=== PATIENT | female | born 1955 | race Caucasian/White ===

== ENCOUNTER 2019-09-16 04:37 | Emergency (ER) | payer MEDICARE, SELFPAY ==
[2019-09-16 04:45] VITALS: BP 167/103; PULSE 113; RESP 18; TEMP 36.6; O2SAT 95; BMI 27.3
--- NOTE | 2019-09-16 04:59 | ED_ITS ---
Documented by User: Von Briseno DO 09/16/19 05:57 HPI - Allergic Reaction General: Chief complaint: Allergic Reaction Stated complaint: lower lip swelling Time Seen by Provider: 09/16/19 04:53 History of Present Illness: HPI narrative: 63-year-old female states that she had a zit on her lower lip a few days ago, pinched it and got some fluid out. She notes after this, her lip began to swell over the last couple of days. She is taken Benadryl and Tylenol with no effect. She complains of tenderness. She says it does not really itch. There is no other rash on her body. She denies any fever or chills. MD complaint: facial swelling Onset (ago): day(s) Exposure: unknown Associated symptoms: Deny abdominal pain, difficulty breathing, dizziness, nausea or vomiting Severity: moderate Treatment prior to arrival: benadryl Previous Allergic Reaction History: none Review of Systems Const: Denies: fever or chills Eyes: Denies: change in vision or blurry vision ENMT: Reports: swelling of lips/tongue; Denies: painful swallowing, bleeding gums, dental pain, Change in hearing, nose bleeds, post nasal drip or facial/sinus pain Card: Denies: chest pain, palpitations, irregular heart rhythm, edema, swelling of feet/ankles, shortness of breath on exertion or shortness of breath when lying down Resp: Denies: shortness of breath, productive cough, non-productive cough or wheezing GI: Denies: abdominal pain, nausea or vomiting : Denies: painful urination or blood in urine Musc: Denies: neck pain, back pain, redness or joint warmth Skin/Breast: Denies: itching or redness Neuro: Denies: headache, dizziness or vertigo Psych: Denies: anxiety PFSH ED PFSH: Social History Smoking and tobacco status: never smoked Physical Exam Const: GENERAL APPEARANCE: well developed ORIENTATION/CONSCIOUSNESS: Yes oriented to person, Yes oriented to place and Yes oriented to time HENMT: COMMON NORMALS: external ears normal and external nose normal FACE & SINUS: facial edema (Lower lip edema with tenderness to palpation.) NOSE: external nose normal and no nasal discharge EXTERNAL EAR: Yes external ears normal MOUTH: tongue normal TEETH & GINGIVA: no abnormal tooth and associated gingiva THROAT: posterior oropharynx normal; no peritonsillar mass Eye: COMMON NORMALS: PERRL, EOMs intact bilaterally and conjunctivae normal EYELID: eyelids normal CONJUNCTIVA: Yes conjunctivae normal PUPIL: Yes PERRL Neck/C-Spine: COMMON NORMALS: full ROM GENERAL: No tracheal deviation Chest: COMMONS NORMALS: inspection of chest normal CHEST: No tenderness Resp: COMMON NORMALS: clear to auscultation bilaterally EFFORT & INSPECTION: No tachypneic, No respiratory distress, No retractions, No uses accessory muscles and No tracheal deviation AUSCULTATION: clear to auscultation bilaterally, no rhonchi, no wheezes and lung sounds not diminished Cardio: COMMON NORMALS: regular rate and regular rhythm RATE: regular rate RHYTHM: regular rhythm HEART SOUNDS: no murmurs PERIPHERAL PULSES: radial pulses present GI: INSPECTION: No abdominal distension AUSCULTATION: No hyperactive bowel sounds and No hypoactive bowel sounds PALPATION: No guarding and No rigid PERCUSSION: no dullness to percussion and no tympanic to percussion Neuro: SENSORIUM/ORIENTATION: Yes oriented to person, Yes oriented to place and Yes oriented to time Psych: COMMON NORMALS: mental status grossly normal Skin: COMMON NORMALS: no rashes or lesions noted GENERAL SKIN EXAM: no rashes or lesions noted Course Vital Signs: Vital signs: Vital Signs Temperature 97.8 F 09/16/19 04:45 Pulse Rate 79 09/16/19 07:33 Respiratory Rate 15 09/16/19 07:33 Blood Pressure 133/103 09/16/19 07:33 Pulse Oximetry 97 09/16/19 07:33 MDM - Allergic Reaction MDM Narrative: Medical decision making narrative: 63-year-old female presents with lower lip swelling. This is after she applied pressure to a comedone. I expect this is infectious swelling, but the possibility remains of allergy. Labs are drawn to clarify. I did a bedside ultrasound, and it does not appear that there is a drainable abscess in the lip itself. She has been given Solu- Medrol and clindamycin. Labs are pending. She will be checked out to Dr. Clay at shift change. Lab Data: Labs: Lab Results 09/16/19 09/16/19 Range/Units 05:51 05:51 WBC 7.7 (4.0-10.0) 10^3/ uL RBC 4.75 (4.1-5.3) 10^6/u L Hgb 13.0 (11.5-15.3) g/dL Hct 38.4 (37.0-47.0) % MCV 80.8 L (81-99) fL MCH 27.4 L (28.0-34.0) pg MCHC 33.9 (30.0-36.0) g/dL RDW 13.7 (12.1-15.1) % Plt Count 273 (130-400) 10^3/c mm MPV 9.2 (7.4-10.4) fL Total Counted 100 (0-100) Segmented Neutroph ils 61 % Band Neutrophils 6.0 % Lymphocytes (Manua l) 15 % Monocytes (Manual) 11.0 % Absolute Monocytes 0.8 H (0.1-0.6) 10^3/c mm Eosinophils (Manua l) 7 % Absolute Eosinophi ls 0.5 (0.0-0.7) 10^3/c mm Platelet Estimate Normal (Normal) Sodium 138 (136-145) mmol/L Potassium 3.9 (3.5-5.1) mmol/L Chloride 101 (98-107) mmol/L Carbon Dioxide 25 (22-29) mmol/L Anion Gap 15.9 (5-19) BUN 13 (8-23) mg/dL Creatinine 0.8 (0.5-0.9) mg/dL GFR Calculation 72.0 L (90-130) mL/min Glucose 117 H (65-115) mg/dL Calculated Osmolal ity 283 L (285-295) mOsm/k g Calcium 10.1 (8.5-10.5) mg/dL Total Bilirubin 0.3 (0.15-1.2) mg/dL AST 18 (0-32) U/L ALT 16 (0-33) U/L Alkaline Phosphata se 71 (35-105) IU/L C-Reactive Protein 7.9 H (0.0-4.9) mg/L Total Protein 7.8 (6.6-8.7) g/dL Albumin 3.9 (3.5-5.2) g/dL Globulin 3.9 (1.3-4.6) g/dL Discharge Plan Discharge Patient Disposition: Home, Self-Care Clinical Impression: Cellulitis of lip Condition: Stable Prescriptions: New clindamycin HCl 300 mg capsule 300 mg PO QID 7 Days Qty: 28 RF: 0 No Action losartan 50 mg Tablet 50 mg PO DAILY RF: 0 levothyroxine 75 mcg Tablet 75 mcg PO DAILY RF: 0 trazodone 150 mg Tablet 150 mg PO DAILY RF: 0 oxybutynin chloride 5 mg Tablet Extended Release 24hr 5 mg PO DAILY RF: 0 Discharge Orders: Discharge Order (Routine); Ordered 09/16/19 Ordered By: Perfecto Clay Referrals: Veronica Bustamante APN [Primary Care Provider] - Discharge Diet: Usual diet Discharge Activity: Resume usual activity Activity Restrictions/Additional Instructions: Follow-up with your doctor in 4 to 5 days if not improving. If seems to be worsening return to the emergency room Discharge Date/Time: 09/16/19 07:33 Sign Out Sign Out Data: Patient Sign Out occurred on 09/16/19 at 07:11. Patient's care was discussed, and care was transferred from to Perfecto Clay DO. Coding Level of Care Code ED Hatchery Helper for Chg Fwd Exam Comprehensive Documented by User: Perfecto Clay DO 09/16/19 08:35 HPI - Allergic Reaction General: Chief complaint: Allergic Reaction Stated complaint: lower lip swelling Time Seen by Provider: 09/16/19 04:53 [facility] ED PFSH: Social History Smoking and tobacco status: never smoked Course Vital Signs: Vital signs: Vital Signs Temperature 97.8 F 09/16/19 04:45 Pulse Rate 79 09/16/19 07:33 Respiratory Rate 15 09/16/19 07:33 Blood Pressure 133/103 09/16/19 07:33 Pulse Oximetry 97 09/16/19 07:33 MDM - Allergic Reaction MDM Narrative: Medical decision making narrative: Labs reviewed. Care assumed from Dr. Briseno. Examination of the lip there is an area that appears to be coming to a point there is localized swelling and erythema consistent with a cellulitis is not really fluctuant I do not believe it can be drained at this time. Dr. Briseno had ultrasounded and there is no drainable mass. She is received a dose of IV antibiotics will discharge home on clindamycin if not improving the next few days with recheck with her primary care doctor if worsens return to the emergency room Lab Data: Labs: Lab Results 09/16/19 09/16/19 Range/Units 05:51 05:51 WBC 7.7 (4.0-10.0) 10^3/ uL RBC 4.75 (4.1-5.3) 10^6/u L Hgb 13.0 (11.5-15.3) g/dL Hct 38.4 (37.0-47.0) % MCV 80.8 L (81-99) fL MCH 27.4 L (28.0-34.0) pg MCHC 33.9 (30.0-36.0) g/dL RDW 13.7 (12.1-15.1) % Plt Count 273 (130-400) 10^3/c mm MPV 9.2 (7.4-10.4) fL Total Counted 100 (0-100) Segmented Neutroph ils 61 % Band Neutrophils 6.0 % Lymphocytes (Manua l) 15 % Monocytes (Manual) 11.0 % Absolute Monocytes 0.8 H (0.1-0.6) 10^3/c mm Eosinophils (Manua l) 7 % Absolute Eosinophi ls 0.5 (0.0-0.7) 10^3/c mm Platelet Estimate Normal (Normal) Sodium 138 (136-145) mmol/L Potassium 3.9 (3.5-5.1) mmol/L Chloride 101 (98-107) mmol/L Carbon Dioxide 25 (22-29) mmol/L Anion Gap 15.9 (5-19) BUN 13 (8-23) mg/dL Creatinine 0.8 (0.5-0.9) mg/dL GFR Calculation 72.0 L (90-130) mL/min Glucose 117 H (65-115) mg/dL Calculated Osmolal ity 283 L (285-295) mOsm/k g Calcium 10.1 (8.5-10.5) mg/dL Total Bilirubin 0.3 (0.15-1.2) mg/dL AST 18 (0-32) U/L ALT 16 (0-33) U/L Alkaline Phosphata se 71 (35-105) IU/L C-Reactive Protein 7.9 H (0.0-4.9) mg/L Total Protein 7.8 (6.6-8.7) g/dL Albumin 3.9 (3.5-5.2) g/dL Globulin 3.9 (1.3-4.6) g/dL Discharge Plan Discharge Patient Disposition: Home, Self-Care Clinical Impression: Cellulitis of lip Condition: Stable Prescriptions: New clindamycin HCl 300 mg capsule 300 mg PO QID 7 Days Qty: 28 RF: 0 No Action losartan 50 mg Tablet 50 mg PO DAILY RF: 0 levothyroxine 75 mcg Tablet 75 mcg PO DAILY RF: 0 trazodone 150 mg Tablet 150 mg PO DAILY RF: 0 oxybutynin chloride 5 mg Tablet Extended Release 24hr 5 mg PO DAILY RF: 0 Discharge Orders: Discharge Order (Routine); Ordered 09/16/19 Ordered By: Perfecto Clay Referrals: Veronica Bustamante APN [Primary Care Provider] - Discharge Diet: Usual diet Discharge Activity: Resume usual activity Activity Restrictions/Additional Instructions: Follow-up with your doctor in 4 to 5 days if not improving. If seems to be worsening return to the emergency room Discharge Date/Time: 09/16/19 07:33 Sign Out Sign Out Data: Patient Sign Out occurred on 09/16/19 at 07:11. Patient's care was discussed, and care was transferred from to Perfecto Clay DO. Coding Level of Care Code ED Hatchery Helper for Divya Fwd Exam Comprehensive
[2019-09-16 06:00] LABS: Hematocrit 38.4 % (37.0-47.0); Mean Corpuscular HGB Conc 33.9 g/dL (30.0-36.0); Mean Corpuscular Hemoglobin 27.4 pg (28.0-34.0); Mean Corpuscular Volume 80.8 fL (81-99); Mean Platelet Volume 9.2 fL (7.4-10.4); Platelet Count 273 10^3/cmm (130-400); Red Blood Count 4.75 10^6/uL (4.1-5.3); Red Cell Distribution Width 13.7 % (12.1-15.1); White Blood Count 7.7 10^3/uL (4.0-10.0)
[2019-09-16] MEDS: famotidine 20 mg/2 mL INJ IVP (06:09)
[2019-09-16] MEDS: diphenhydrAMINE 50 mg/mL SDV 1mL IVP (06:14)
[2019-09-16 06:15] LABS: Absolute Eosinophils 0.5 10^3/cmm (0.0-0.7); Absolute Segmented Neutrophil 4.6 10/cmm (1.6-7.1); Band Neutrophils Absolute 0.5 10^3/cmm (0.0-1.2); Eosinophils 7 %; Lymphocytes 15 %; Monocytes Absolute 0.8 10^3/cmm (0.1-0.6); Segmented Neutrophils 61 %; Total Cells Counted 100 (0-100)
[2019-09-16 06:16] LABS: Alanine Aminotransferase 16 U/L (0-33); Albumin Level 3.9 g/dL (3.5-5.2); Alkaline Phosphatase 71 IU/L (35-105); Anion Gap 15.9 (5-19); Aspartate Amino Transferase 18 U/L (0-32); Blood Urea Nitrogen 13 mg/dL (8-23); C Reactive Protein 7.9 mg/L (0.0-4.9); Calcium 10.1 mg/dL (8.5-10.5); Carbon Dioxide 25 mmol/L (22-29); Chloride 101 mmol/L (98-107); Globulin 3.9 g/dL (1.3-4.6); Glucose 117 mg/dL (65-115); Osmolality Calculated 283 mOsm/kg (285-295); Platelet Estimate Normal (Normal); Potassium 3.9 mmol/L (3.5-5.1); Sodium 138 mmol/L (136-145); Total Bilirubin 0.3 mg/dL (0.15-1.2); Total Protein 7.8 g/dL (6.6-8.7)
[2019-09-16] MEDS: clindamycin 900 MG/50 ML PREMIX 100 MG IV (06:17)
[2019-09-16 06:32] VITALS: BP 170/112; PULSE 102; RESP 16; O2SAT 100
--- NOTE | 2019-09-16 06:58 | PC.NURSE ---
Antibiotics complete. Pt. without complaint. Without distress.
[2019-09-16 07:33] VITALS: BP 133/103; PULSE 79; RESP 15; O2SAT 97
== END 2019-09-16 07:33 | disposition home or self-care (01) ==
PROVIDERS: Emergency Medicine; Emergency Provider Family Medicine; PCP Nurse Practitioner
DX: K13.0 Diseases of lips (principal)
CPT/HCPCS: 12345; 80053; 85007; 85027; 86140; 96365; 96375; 99282; J1200; J2930; J3490

== ENCOUNTER 2019-11-22 14:13 | Outpatient (CLI) | payer MEDICARE, SELFPAY ==
--- NOTE | 2019-11-22 14:21 | XR_ITS ---
WS: [id number] Bone mineral density performed on a [employer], 11/22/2019 Clinical data: POST MENOPAUSE Findings: The first 4 lumbar vertebral bodies demonstrated the bone mineral density of 1.233 g/cm2 for a young adult T score of 0.4. Measurement of the left hip reveals a bone mineral density of 1.067 g/cm2 with a young adult T score of 0.5. Measurement of the right hip reveals the bone mineral density of 1.068 g/cm2 for young adult T score of 0.5. XR/XR DEXA axial skeleton* [id number] Impression: Normal bone mineral density of the lumbar spine and both hips.
== END 2019-11-22 14:14 | disposition home or self-care (01) ==
PROVIDERS: PCP Nurse Practitioner; Visit Provider Nurse Practitioner Family
DX: Z78.0 Asymptomatic menopausal state (principal)
CPT/HCPCS: 77080

== ENCOUNTER 2020-01-15 09:00 | Outpatient (CLI) | payer MEDICARE, SELFPAY ==
--- NOTE | 2020-01-15 09:05 | MM_ITS ---
WS: [id number] BILATERAL SCREENING DIGITAL MAMMOGRAM WITH CAD HISTORY: SCREENING COMPARISON: 08/01/2018 and 07/12/2017 and 06/11/2014 Bilateral CC and MLO views submitted. Computer aided detection analyzed. Breast composition: There are scattered areas of fibroglandular density. No suspicious masses, microc alcifications or architectural distortion. Asymmetries and calcifications are stable. No distortion. MM/[place] [id number] IMPRESSION: BI-RADS: 2-Benign FOLLOW UP: 1 Year Follow-up
== END 2020-01-15 09:01 | disposition home or self-care (01) ==
LOC: RADSHAW 09:04
PROVIDERS: PCP Nurse Practitioner; Visit Provider Nurse Practitioner
DX: Z12.31 Encounter for screening mammogram for malignant neoplasm of breast (principal)
CPT/HCPCS: 77067

== ENCOUNTER 2020-06-09 02:50 | Emergency (ER) | payer MEDICARE, SELFPAY ==
[2020-06-09 02:52] VITALS: BP 102/65; PULSE 70; RESP 12; TEMP 36.7; O2SAT 96; BMI 27.9
--- NOTE | 2020-06-09 02:55 | ECG_ITS ---
[facility] Test Date: 2020-06-09 Pat Name: Nancy Rodríguez Department: Room: Gender: Female Pbx Inspector: : 1955 Requested By: Benjamin Pryor Order Number: [id number] Reading MD: MORIAH SLATER Measurements Intervals [place] Rate: 70 P: 31 DE: 151 QRS: 1 QRSD: 103 T: 29 QT: 409 QTc: 444 Interpretive Statements SINUS RHYTHM NONSPECIFIC ST & T-WAVE ABNORMALITY No previous ECG available for comparison Electronically Signed On 06-09-2020 18:02:37 PINION POLISHER by MORIAH SLATER [email or web address]
--- NOTE | 2020-06-09 02:55 | ED_ITS ---
HPI - Syncope General: Chief Complaint: Syncope Stated Complaint: SEIZURE Time Seen by Provider: 06/09/20 02:52 Source: patient and EMS Mode of arrival: EMS Limitations: no limitations History of Present Illness: HPI narrative: 64-year-old female who states that her son was in the ER earlier was treated for brown recluse bite. She states that ago she went to help with his dressing while changing the dressing she felt nauseous got very lightheaded and pale and had a syncopal event. She was out for roughly 1 minute. Patient states that she felt slightly nauseous after she woke up. She denies any headache or chest pain. She states she feels back to normal and feels completely fine currently. Denies any worsening improving factors. Associated symptoms: Deny abdominal pain, fever(s), headache(s) or nausea Review of Systems Const: Denies: fever(s), chills, body aches or change in appetite Eyes: Denies: blurry vision or eye discomfort ENMT: Denies: throat pain or dental pain Card: Reports: syncope Resp: Denies: dyspnea GI: Denies: abdominal pain, nausea, vomiting or diarrhea : Denies: dysuria Musc: Denies: neck pain or back pain Skin/Breast: Denies: rash Neuro: Denies: headache(s) Psych: Denies: depression Inder/Lymph: Denies: easy bruising All/Imm: Denies: urticaria PFSH ED PFSH: Social History Smoking and tobacco status: never smoked Physical Exam Const: COMMON NORMALS: no acute distress, patient oriented x3 and healthy appearing HENMT: COMMON NORMALS: normocephalic and atraumatic HEAD & SCALP: normocephalic and atraumatic Eye: COMMON NORMALS: Equal, round and reactive pupils present and EOMs intact bilaterally PUPIL: Yes Equal, round and reactive pupils present Neck/C-Spine: COMMON NORMALS: full ROM and supple Chest: COMMONS NORMALS: normal inspection of the chest and normal palpation of entire chest wall Resp: COMMON NORMALS: normal respiratory effort, No retractions, No use of accessory muscles and clear to auscultation bilaterally AUSCULTATION: clear to auscultation bilaterally Cardio: COMMON NORMALS: regular rate, regular rhythm and No murmurs present (Cardio) RATE: regular rate RHYTHM: regular rhythm GI: COMMON NORMALS: Normal to inspection, nondistended, normoactive bowel sounds present, Soft to palpation, non-tender and no masses PALPATION: Yes Soft to palpation Extremity: COMMON NORMALS: normal to inspection and full ROM Neuro: COMMON NORMALS: patient oriented x3, moves all extremities and no focal motor deficits Psych: COMMON NORMALS: mental status grossly normal, Normal thought process present and cooperative THOUGHT PROCESS: Normal thought process present Skin: COMMON NORMALS: no rashes or lesions noted and no wounds GENERAL SKIN EXAM: no rashes or lesions noted Course Vital Signs: Vital signs: Vital Signs Temperature 98.1 F 06/09/20 02:52 Pulse Rate 70 06/09/20 04:22 Respiratory Rate 16 06/09/20 03:37 Blood Pressure 105/55 06/09/20 04:22 Pulse Oximetry 94 06/09/20 04:22 MDM - Syncope MDM Narrative: Medical decision making narrative: Patient presents here with syncopal event with her history consistent with a likely vasovagal syncope. She had no chest pain or headache and has no signs of a pulmonary embolism or cardiac cause. She feels much improved here and her blood work is all normal. She is stable for discharge and is to follow-up with PCP in 3 to 5 days return to the ER if she has any other symptoms. She understands and agrees to plan. Lab Data: Labs: Lab Results 06/09/20 06/09/20 Range/Units 03:04 03:04 WBC 6.6 (4.0-10.0) 10^3/ uL RBC 4.78 (4.1-5.3) 10^6/u L Hgb 12.9 (11.5-15.3) g/dL Hct 39.0 (37.0-47.0) % MCV 81.6 (81-99) fL MCH 27.0 L (28.0-34.0) pg MCHC 33.1 (30.0-36.0) g/dL RDW 13.4 (12.1-15.1) % Plt Count 296 (130-400) 10^3/c mm MPV 9.4 (7.4-10.4) fL Neut % (Auto) 58.9 % Lymph % (Auto) 22.2 % [place] % (Auto) 9.1 % Eos % (Auto) 8.6 % Baso % (Auto) 0.9 % Neut # (Auto) 3.88 (1.8-7.7) 10^3/u L Lymph # (Auto) 1.5 (0.8-4.8) 10^3/u L [place] # (Auto) 0.6 (0.2-0.9) 10^3/u L Eos # (Auto) 0.6 (0.0-0.8) 10^3/u L Baso # (Auto) 0.1 (0.0-0.1) 10^3/u L Nucleated RBC % (a uto) 0 % Nucleated RBCs # 0.0 /100WBC Sodium 138 (136-145) mmol/L Potassium 4.7 (3.5-5.1) mmol/L Chloride 100 (98-107) mmol/L Carbon Dioxide 26 (22-29) mmol/L Anion Gap 16.7 (5-19) BUN 14 (8-23) mg/dL Creatinine 0.8 (0.5-0.9) mg/dL GFR Calculation 71.8 L (90-130) mL/min Glucose 110 (65-115) mg/dL Calculated Osmolal ity 287 (285-295) mOsm/k g Calcium 9.2 (8.5-10.5) mg/dL Total Bilirubin 0.3 (0.15-1.2) mg/dL AST 33 H (0-32) U/L ALT 14 (0-33) U/L Alkaline Phosphata se 45 (35-105) IU/L Total Protein 7.6 (6.6-8.7) g/dL Albumin 3.9 (3.5-5.2) g/dL Globulin 3.7 (1.3-4.6) g/dL EKG Data^: EKG 1: Attestation: I personally reviewed and interpreted this EKG as follows: EKG interpretation date: 06/09/20 EKG interpretation time: 03:03 Interpretation: nsr hr [address] or t wave abnormalities qrs 103 qtc 430 Discharge Plan Discharge Patient Disposition: Home Clinical Impression: Syncope Qualifiers: Syncope type: unspecified Qualified Code(s): R55 - Syncope and collapse Condition: Stable Prescriptions: No Action losartan 50 mg Tablet 50 mg PO DAILY RF: 0 levothyroxine 75 mcg Tablet 75 mcg PO DAILY RF: 0 trazodone 150 mg Tablet 150 mg PO DAILY RF: 0 oxybutynin chloride 5 mg Tablet Extended Release 24hr 5 mg PO DAILY RF: 0 Discharge Orders: Discharge ED (Routine); Ordered 06/09/20 Ordered By: Benjamin Pryor Referrals: Veronica Bustamante HEALTH CARE COACH [Primary Care Provider] - 1-3 days Discharge Diet: Advance as tolerated Discharge Activity: Resume usual activity Patient Instructions: Syncope (ED) Coding Level of Care Code ED [employer] Bpm Consultant for Chg Fwd Exam Comprehensive
[2020-06-09 03:10] VITALS: PULSE 71; RESP 16; O2SAT 96
[2020-06-09 03:12] VITALS: BP 102/62; BP 102/66; BP 107/64; PULSE 76; PULSE 81; PULSE 82
[2020-06-09 03:18] LABS: Basophils # 0.1 10^3/uL (0.0-0.1); Basophils % 0.9 %; Eosinophils # 0.6 10^3/uL (0.0-0.8); Eosinophils % 8.6 %; Hemoglobin 12.9 g/dL (11.5-15.3); Lymphocytes # 1.5 10^3/uL (0.8-4.8); Lymphocytes % 22.2 %; Mean Corpuscular HGB Conc 33.1 g/dL (30.0-36.0); Mean Corpuscular Volume 81.6 fL (81-99); Mean Platelet Volume 9.4 fL (7.4-10.4); Monocytes # 0.6 10^3/uL (0.2-0.9); Monocytes % 9.1 %; Neutrophils # 3.88 10^3/uL (1.8-7.7); Neutrophils % 58.9 %; Nucleated Red Blood Cells % 0 %; Platelet Count 296 10^3/cmm (130-400); Red Blood Count 4.78 10^6/uL (4.1-5.3); Red Cell Distribution Width 13.4 % (12.1-15.1); White Blood Count 6.6 10^3/uL (4.0-10.0)
[2020-06-09] MEDS: sodium chloride 0.9% 1,000 ML 999 ML IV (03:19)
[2020-06-09] MEDS: ondansetron 2 mg/ML SDV 2 mL 4 MG IVP (03:36)
[2020-06-09 03:37] VITALS: BP 97/57; PULSE 74; RESP 16; O2SAT 97
[2020-06-09 04:02] LABS: Albumin Level 3.9 g/dL (3.5-5.2); Blood Urea Nitrogen 14 mg/dL (8-23); Calcium 9.2 mg/dL (8.5-10.5); Carbon Dioxide 26 mmol/L (22-29); Chloride 100 mmol/L (98-107); Globulin 3.7 g/dL (1.3-4.6); Glomerular Filtration Rate 71.8 mL/min (90-130); Glucose 110 mg/dL (65-115); Osmolality Calculated 287 mOsm/kg (285-295); Sodium 138 mmol/L (136-145); Total Bilirubin 0.3 mg/dL (0.15-1.2); Total Protein 7.6 g/dL (6.6-8.7)
[2020-06-09 04:19] LABS: Alanine Aminotransferase 14 U/L (0-33); Alkaline Phosphatase 45 IU/L (35-105); Anion Gap 16.7 (5-19); Aspartate Amino Transferase 33 U/L (0-32); Potassium 4.7 mmol/L (3.5-5.1)
[2020-06-09 04:22] VITALS: BP 105/55; PULSE 70; O2SAT 94
[2020-06-09 04:37] VITALS: BP 99/57; PULSE 78; RESP 16; O2SAT 95
== END 2020-06-09 04:39 | disposition home or self-care (01) ==
PROVIDERS: Emergency Provider Emergency Medicine; PCP Nurse Practitioner
DX: R55 Syncope and collapse (principal)
CPT/HCPCS: 12345; 80053; 85025; 93005; 96361; 96374; 99283; J2405; J7030

== ENCOUNTER 2020-11-26 11:00 | Outpatient (CLI) | payer MEDICARE, SELFPAY ==
--- NOTE | 2020-11-26 11:11 | XR_ITS ---
WS: [id number] Right knee, AP and lateral views, 11/26/2020 Clinical Data: JOINT PAIN IN R KNEE Comparison: None. Findings: No fractures or dislocations are seen. The joint spaces are normal. The patella is intact. The soft t issues are unremarkable. There is a calcification posterior to the tibial plateau measures 0.7 cm which may be synovial. XR/XR knee RT 1-2V [id number] Impression: Negative right knee. Kellgren-Baldev Classification: grade 0 (none): definite absence of x-ray frankie nges of osteoarthritis
== END 2020-11-26 11:01 | disposition home or self-care (01) ==
PROVIDERS: PCP Nurse Practitioner; Visit Provider Nurse Practitioner
DX: M25.561 Pain in right knee (principal)
CPT/HCPCS: 73560

== ENCOUNTER 2021-02-22 07:47 | Outpatient (CLI) | payer MEDICARE, SELFPAY ==
--- NOTE | 2021-02-22 07:53 | MM_ITS ---
WS: [id number] SCREENING DIGITAL MAMMOGRAM WITH CAD HISTORY: SCREENING COMPARISON: 01/15/2020, 08/01/2018, 07/12/2017 and 06/17/2015 Bilateral CC and MLO views submitted. Computer aided detection analyzed. Breast composition: There are scattered areas of fibroglandular density. Focal nodule measuring 7.5 m m in the anterior RIGHT breast just medial to the nipple line. Seen best in the inferior breast on th e lateral projection. This may have been present on prior recent imaging studies but appears more pro minent and better visualized today. This area was not present in 2014 and needs to be further evaluat ed. IMPRESSION: MM/[place] [id number] BI-RADS: 0-Incomplete: Need additional imaging evaluation FOLLOW UP: Need Additional Imaging RIGHT breast: Spot compression views (CC and MLO). True ML. Ultrasound to follo w if abnormality persists.
== END 2021-02-22 07:48 | disposition home or self-care (01) ==
LOC: RADSHAW 07:50
PROVIDERS: PCP Nurse Practitioner; Visit Provider Nurse Practitioner
DX: Z12.31 Encounter for screening mammogram for malignant neoplasm of breast (principal)
CPT/HCPCS: 77067

== ENCOUNTER 2021-04-19 08:53 | Outpatient (CLI) | payer MEDICARE, SELFPAY ==
--- NOTE | 2021-04-19 08:59 | US_ITS ---
WS: [id number] ADDITIONAL VIEWS RIGHT BREAST RIGHT breast ultrasound, limited HISTORY: ABNORMAL MAMMOGRAM COMPARISON: 02/22/2021, 01/15/2020, 08/01/2018 and 07/12/2017 Compression views right CC and MLO projection. True ML also submitted. 7 mm partially obscured nodule in the anterior RIGHT breast just medial to the nipple. This is seen o n the CC and MLO view. There are additional asymmetries around the nipple which will be further evalu ated also by ultrasound. RIGHT breast ultrasound, limited. Hypoechoic mass with a few small septations and mild through transmission is noted at 4:00 in the ant erior breast. This mass measures 6 x 5 x 5 mm and does correspond in size and location to the mammogr aphic abnormality. There is no increased vascularity. This may be a benign cyst. The anterior RIGHT b reast otherwise demonstrates no abnormality. There is a mildly prominent duct at 11:00 or small cysts . US/US breast RT limited* [id number] IMPRESSION: BI-RADS: 4-Suspicious Finding-Biopsy Should Be Considered FOLLOW-UP: Biopsy Recommended Hypoechoic nodule RIGHT breast at 4:00 for which biopsy is recommended. Recomme nd ultrasound-guided biopsy. This may be a complex cyst. Notified Veronica Bustamante APN at 04/19/2021 10:20 AM. LEFT report with Leatha.
== END 2021-04-19 08:54 | disposition home or self-care (01) ==
LOC: RADSHAW 08:56
PROVIDERS: PCP Nurse Practitioner; Visit Provider Nurse Practitioner
DX: R92.8 Other abnormal and inconclusive findings on diagnostic imaging of breast (principal); N63.14 Unspecified lump in the right breast, lower inner quadrant
CPT/HCPCS: 76642; 77065

== ENCOUNTER 2021-05-10 12:10 | Outpatient (CLI) | payer MEDICARE, SELFPAY ==
--- NOTE | 2021-05-10 12:17 | US_ITS ---
WS: [id number] ULTRASOUND-GUIDED RIGHT BREAST BIOPSY HISTORY: NODULE 7MM, BI-RADS 4 lesion seen on prior ultrasound. COMPARISON: 04/19/2021 and 02/22/2021 Procedure, risks and complications are explained to the patient. Medications are reviewed. Consent is obtained. The mass in the RIGHT breast is localized with ultrasound. Mass localizes to 4:00 at the areolar. Thi s is probably a complex cyst. Skin is cleansed with ChloraPrep and anesthetized with 1% buffered lido neo. Small dermatome is made. Under sterile conditions mass is biopsied with a 14-gauge Achieve nee dle. Single core biopsy is performed. After the initial biopsy the mass completely collapsed. Materia l placed in formalin and sent to pathology for review. No complications encountered. Breast tissue marker (Bard ultrasound enhanced ribbon): None. Cystic mass collapsed after initial bio psy. Patient left the radiology suite with no complications. Patient is instructed to return to [facility] or [facility] with any concerns. US/[place] [id number] IMPRESSION: 1. Uncomplicated core needle biopsy cystic mass at 4:00. Mass completely colla psed after the first biopsy. No additional biopsies obtained. PATHOLOGY: Benign breast tissue with histiocytes and debris. Suggestive of a ru ptured simple cyst. No malignancy. RECOMMENDATION: Return to annual screening mammography. Pathology and imaging f indings are concordant.
== END 2021-05-10 12:11 | disposition home or self-care (01) ==
LOC: RAD 12:14
PROVIDERS: PCP Nurse Practitioner; Visit Provider Nurse Practitioner
DX: Z01.812 Encounter for preprocedural laboratory examination (principal); N63.10 Unspecified lump in the right breast, unspecified quadrant
CPT/HCPCS: 19083; 88305

== ENCOUNTER 2022-02-28 12:50 | Outpatient (CLI) | payer MEDICARE, SELFPAY ==
--- NOTE | 2022-02-28 13:03 | MM_ITS ---
WS: [id number] VIEWS: MLO and CC views both breasts. 3D digital tomosynthesis is also included in this exam. Comparison made with prior exam of 06/17/2015, 07/12/2017, 08/01/2018, 01/15/2020, 02/22/2021.. Findings: Stable appearing nodular densities in both breasts. No sign of suspicious calcification or architectu ral distortion. Heterogeneously dense MM/[place] [id number] Impression: BI-RADS: 2-Benign FOLLOW-UP: 1 Year Follow-up This mammogram was also analyzed by the Computer Aided Detection System R2 Imag e Clinical Dietitian.
== END 2022-02-28 12:51 | disposition home or self-care (01) ==
LOC: RAD 12:52
PROVIDERS: PCP Nurse Practitioner Family; Visit Provider Nurse Practitioner Family
DX: Z12.31 Encounter for screening mammogram for malignant neoplasm of breast (principal)
CPT/HCPCS: 77063; 77067

== ENCOUNTER 2022-12-05 13:57 | Outpatient (CLI) | payer MEDICARE, SELFPAY ==
--- NOTE | 2022-12-05 | XRR_ITS ---
PROCEDURE INFORMATION: Exam: XR Chest Exam date and time: 12/05/2022 2:54 PM Age: 66 years old Clinical indication: Cough; Additional info: Personal history of pneumonia TECHNIQUE: Imaging protocol: Radiologic exam of the chest. Views: 2 views. COMPARISON: No relevant prior studies available. FINDINGS: Lungs: Mild patchy opacification of the right lower and left upper lung zones. Pleural spaces: Unremarkable. No pleural effusion. No pneumothorax. Heart/Mediastinum: Unremarkable. No cardiomegaly. Bones/joints: Mild degenerative changes along the spine and shoulders. XR/XR chest 2V* [id number] IMPRESSION: Mild multifocal bilateral lung patchy opacification may represent resolving pneumonia given provided history. Could also represent developing or worsening pneumonia. Comparison with any available recent imaging is recommended. Recommend imaging followup to resolution to exclude an underlying lesion.
== END 2022-12-05 13:58 | disposition home or self-care (01) ==
PROVIDERS: PCP Nurse Practitioner Family; Visit Provider Nurse Practitioner Family
DX: Z87.01 Personal history of pneumonia (recurrent) (principal); R91.8 Other nonspecific abnormal finding of lung field
CPT/HCPCS: 71046

== ENCOUNTER → 2022-12-12 15:02 | Outpatient (BNVA) | payer MEDICARE, SELFPAY | PROVIDERS: PCP Nurse Practitioner Family; Visit Provider Surgery | DX: R19.7 Diarrhea, unspecified (principal); D64.9 Anemia, unspecified | CPT/HCPCS: 99204 ==

== ENCOUNTER 2022-12-19 11:41 | Outpatient (CLI) | payer MEDICARE, SELFPAY ==
--- NOTE | 2022-12-19 11:50 | XRR_ITS ---
PROCEDURE INFORMATION: Exam: XR Chest Exam date and time: 12/19/2022 11:54 AM Age: 66 years old Clinical indication: Condition or disease; Lung condition and disease; Pneumonia; Bacterial; Prior surgery; Surgery date: 6+ months; Surgery type: Lumpectomy; Additional info: HX of bacterial pneumonia TECHNIQUE: Imaging protocol: Radiologic exam of the chest. Views: 2 views. COMPARISON: CR XR chest 2V* [id number] 12/05/2022 2:54 PM FINDINGS: Lungs: Previously noted left upper and right lower lung infiltrates are not appreciably changed. No new findings. Pleural spaces: Unremarkable. No pleural effusion. No pneumothorax. Heart/Mediastinum: Unremarkable. No cardiomegaly. Bones/joints: No acute findings. XR/XR chest 2V* [id number] IMPRESSION: No significant change.
== END 2022-12-19 11:42 | disposition home or self-care (01) ==
PROVIDERS: PCP Nurse Practitioner Family; Visit Provider Nurse Practitioner Family
DX: Z87.01 Personal history of pneumonia (recurrent) (principal)
CPT/HCPCS: 71046

== ENCOUNTER 2023-02-02 07:37 | Day surgery (SDC) | payer MEDICARE, SELFPAY ==
[2023-01-31 10:27] VITALS: BMI 26.7
[2023-02-02] MEDS: sodium chloride 0.9% 1,000 ML 30 ML IV (07:48)
[2023-02-02 07:49] VITALS: BP 118/71; PULSE 102; RESP 18; TEMP 36.1; O2SAT 95
--- NOTE | 2023-02-02 08:03 | W.PM.OPSFHP ---
Same Day Surgery H&P Indication for Procedure/HPI DATE OF PROCEDURE: February 02, 2023 CHIEF COMPLAINT/INDICATIONFOR SURGICAL PROCEDURE: need for screening colonoscopy PREOP DIAGNOSIS: encounter for screening colonoscopy PLANNED PROCEDURE: Operation Date: 02/02/23 08:50 Proposed Procedures p Colonoscopy 52037,z12.11(Not Applicable) - Louis Anderson MD Medications/Allergies* Home Medications Medication Instructions Recorded Confirmed Type levothyroxine 75 mcg tablet 75 mcg PO DAILY 09/16/19 01/31/23 History losartan 50 mg tablet 50 mg PO DAILY 09/16/19 01/31/23 History oxybutynin chloride 5 mg 5 mg PO DAILY 09/16/19 01/31/23 History tablet,extended release 24 hr trazodone 150 mg tablet 150 mg PO DAILY 09/16/19 01/31/23 History mirabegron 50 mg tablet,extended 50 mg PO DAILY 12/12/22 01/31/23 History release 24 hr (Myrbetriq) Allergies/Adverse Reactions Allergy/AdvReac Type Severity Reaction Status Date / Time No Known Allergies Allergy Verified 02/02/23 07:50 Current Medications: Generic Name Dose Route Start Last Admin Trade Name Freq PRN Reason Stop Dose Admin Sodium Chloride 1,000 mls @ 30 mls/hr 02/02/23 07:45 02/02/23 07:48 Sodium Chloride 0.9% IV 02/03/23 07:44 30 mls/hr .Q24H RC Administration Pertinent History/Comorbid Conditions* Social History Smoking and tobacco status: never smoked Alcohol intake: never Marital status: Current occupational status: retired Pertinent Exam Findings alert, oriented x 3, clear to auscultation bilaterally and regular rate & rhythm Recommendations Surgery/Procedure today Coding Level of Care Code Acute Code for Chg Fwd Diagnoses
--- NOTE | 2023-02-02 08:17 | P.ANESASSM_ITS ---
Pre-Anesthetic Assessment Height/Weight: Height 1.6 m Weight 68.492 kg Temp Pulse Resp BP Pulse Ox O2 Del Method 97 F L 102 H 18 118/71 95 Room Air 02/02/23 07:49 02/02/23 07:49 02/02/23 07:49 02/02/23 07:49 02/02/23 07:49 02/02/23 07:49 Preop Diagnosis: encounter for screening colonoscopy Operation Date: 02/02/23 08:50 Proposed Procedures p Colonoscopy 92366,z12.11(Not Applicable) - Louis Anderson MD Familial anesthetic complications: none Was Beta Annie taken within 24 hours: N/A Was Clonidine taken within 24 hours: N/A Last intake: Intake Last Liquid Date 02/01/23 Last Liquid Time 22:00 Last Solid Date 01/31/23 Social No alcohol and No tobacco Exam alert and oriented x 3 Airway Submandibular: within normal limits Cervical ROM: within normal limits Mallampati: Class I Dentition: false History/ROS No significant history except as noted Pulmonary None reported CV/HEM Hypertension Hepatic None reported GI Gastroesophageal Reflux Disease Metabolic Hyperlipidemia and Thyroid Disease [facility] None reported Neuropsych None reported Anesthetic Plan ASA status: 3 Anesthesia: Anesthesia Evaluation, General and MAC Risk of > 500 ml blood loss (7ml/kg in children): No Medications/Allergies Home Medications Medication Instructions Recorded Confirmed Last Taken Type levothyroxine 75 mcg tablet 75 mcg PO DAILY 09/16/19 01/31/23 02/01/23 History losartan 50 mg tablet 50 mg PO DAILY 09/16/19 01/31/23 02/01/23 History oxybutynin chloride 5 mg 5 mg PO DAILY 09/16/19 01/31/23 02/01/23 History tablet,extended release 24 hr trazodone 150 mg tablet 150 mg PO DAILY 09/16/19 01/31/23 02/01/23 History mirabegron 50 mg tablet,extended 50 mg PO DAILY 12/12/22 01/31/23 02/01/23 History release 24 hr (Myrbetriq) Allergies Allergy/AdvReac Type Severity Reaction Status Date / Time No Known Allergies Allergy Verified 02/02/23 07:50 Current Medications Generic Name Dose Route Start Last Admin Trade Name Freq PRN Reason Stop Dose Admin Sodium Chloride 1,000 mls @ 30 mls/hr 02/02/23 07:45 02/02/23 07:48 Sodium Chloride 0.9% IV 02/03/23 07:44 30 mls/hr .Q24H RC Administration PFSH Anesthesia Social History (Updated 12/12/22 @ 15:22 by Aliza Jennings) Smoking and tobacco status: never smoked Alcohol intake: never Marital status: Current occupational status: retired Data Anesthesia Cardiac Studies: No Data to Display
[2023-02-02 09:10] VITALS: BP 105/58; PULSE 77; RESP 16; TEMP 36.1; O2SAT 98
[2023-02-02 09:39] VITALS: BP 110/62; PULSE 70; RESP 18; O2SAT 97
== END 2023-02-02 10:00 | disposition home or self-care (01) ==
PROVIDERS: PCP Nurse Practitioner Family; Visit Provider Surgery
PROC: 0DJD8ZZ Inspection of Lower Intestinal Tract, Via Natural or Artificial Opening Endoscopic (ICD-10-PCS; CPT 45378; principal; 2023-02-02 08:50)
DX: Z12.11 Encounter for screening for malignant neoplasm of colon (principal); D12.5 Benign neoplasm of sigmoid colon; I10 Essential (primary) hypertension; K21.9 Gastro-esophageal reflux disease without esophagitis; E78.5 Hyperlipidemia, unspecified
CPT/HCPCS: 45380; 88305; J2704; J7030

== ENCOUNTER 2023-03-06 12:15 | Outpatient (CLI) | payer MEDICARE, SELFPAY ==
--- NOTE | 2023-03-06 13:02 | MM_ITS ---
WS: [id number] BILATERAL 3D TOMOSYNTHESIS DIGITAL SCREENING MAMMOGRAPHY WITH CAD CLINICAL INFORMATION: SCREENING HISTORY: Screening mammogram. No current complaints. COMPARISON: 2021 TECHNIQUE: Bilateral CC and MLO views. FINDINGS: The breasts are composed of heterogeneous fibroglandular density tissue, which can limit the detectio n of small underlying mass lesions. No suspicious mass, asymmetry, calcifications, or architectural d istortion. No evidence of malignancy. Punctate and lucent centered calcifications. IMPRESSION: MM/[place] [id number] BI-RADS: 2-Benign FOLLOW UP: 1 Year Follow-up Recommend return to annual screening mammography.
== END 2023-03-06 12:16 | disposition home or self-care (01) ==
LOC: RAD 12:15
PROVIDERS: PCP Nurse Practitioner Family; Visit Provider Nurse Practitioner Family
DX: Z12.31 Encounter for screening mammogram for malignant neoplasm of breast (principal); Z09 Encounter for follow-up examination after completed treatment for conditions other than malignant neoplasm; Z86.010 Personal history of colon polyps
CPT/HCPCS: 77063; 77067; 99213

== ENCOUNTER 2023-10-05 18:53 | Emergency (ER) | payer MEDICARE, SELFPAY ==
[2023-10-05 19:05] VITALS: BP 147/82; PULSE 95; RESP 16; TEMP 36.3; O2SAT 95
--- NOTE | 2023-10-05 20:23 | CTR_ITS ---
PROCEDURE INFORMATION: Exam: CTA Head Without And With Contrast, Arteriography Exam date and time: 10/05/2023 8:42 PM Age: 67 years old Clinical indication: Pain; Headache; Additional info: BUSTAMANTE TECHNIQUE: Imaging protocol: Computed tomographic angiography of the head without and with contrast. Exam focused on the arteries. 3D rendering (Not supervised by radiologist): MIP and/or 3D reconstructed images were created by the technologist. Radiation optimization: All CT scans at this facility use at least one of these dose optimization techniques: automated exposure control; mA and/or kV adjustment per patient size (includes targeted exams where dose is matched to clinical indication); or iterative reconstruction. Contrast material: OMNI 350; Contrast volume: 1543 ml; Contrast route: INTRAVENOUS (IV); COMPARISON: No relevant prior studies available. RADIATION DOSE METRICS: Total DLP (mGy-cm): 1543 FINDINGS: ANTERIOR CIRCULATION: Right internal carotid artery: Patent without high-grade stenosis. Right middle cerebral artery: M1 and M2 segments are patent without high-grade stenosis. Right anterior cerebral artery: A1 and A2 segments are patent without high-grade stenosis. Left internal carotid artery: Patent without high-grade stenosis. Left middle cerebral artery: M1 and M2 segments are patent without high-grade stenosis. Left anterior cerebral artery: A1 and A2 segments are patent without high-grade stenosis. POSTERIOR CIRCULATION: Right vertebral artery: V4 segment is patent without high-grade stenosis. Left vertebral artery: Left V4 segment does not opacify, likely congenital. Left AICA and PICA patent. Basilar artery: Patent without high-grade stenosis. Right posterior cerebral artery: type origin of the right [employer] with hypoplastic P1 segment. P2 segment patent without high-grade stenosis. Left posterior cerebral artery: type origin of the left [employer] with hypoplastic P1 segment. P2 segment patent without high-grade stenosis. HEAD: Brain: No acute intracranial hemorrhage. No acute territorial region of rao-white dedifferentiation. No extra-axial collection. No mass effect or midline shift. Scattered nonspecific white matter hypodensities, likely chronic microvascular ischemic change. Cerebral ventricles: No acute hydrocephalus. Bones: Unremarkable. No acute fracture. Paranasal sinuses: Visualized sinuses are well-aerated. No fluid levels. Mastoid air cells: Well aerated. Soft tissues: Unremarkable. Other findings: No aneurysm. No venous thrombosis. PROCEDURE INFORMATION: Exam: CTA Neck With Contrast Exam date and time: 10/05/2023 8:42 PM Age: 67 years old Clinical indication: Pain; Headache; Additional info: BUSTAMANTE TECHNIQUE: Imaging protocol: Computed tomographic angiography of the neck with contrast. Exam focused on the cervical segments of the vasculature. 3D rendering (Not supervised by radiologist): MIP and/or 3D reconstructed images were created by the technologist. Radiation optimization: All CT scans at this facility use at least one of these dose optimization techniques: automated exposure control; mA and/or kV adjustment per patient size (includes targeted exams where dose is matched to clinical indication); or iterative reconstruction. Contrast material: OMNI 350; Contrast volume: 1543 ml; Contrast route: INTRAVENOUS (IV); COMPARISON: CR XR chest 2V* [id number] 12/19/2022 11:54 AM RADIATION DOSE METRICS: Total DLP (mGy-cm): 1543 FINDINGS: Right common carotid artery: Patent. No high grade stenosis. Right internal carotid artery: Right ICA is patent. No ICA stenosis by NASCET criteria. Right external carotid artery: Patent. No high grade stenosis at the origin. Left common carotid artery: Patent. No high grade stenosis. Left internal carotid artery: Left ICA is patent. No ICA stenosis by NASCET criteria. Left external carotid artery: Patent. No high grade stenosis at the origin. Right vertebral artery: Patent. No high grade stenosis. Left vertebral artery: Hypoplastic. Patent. Soft tissues: Unremarkable. Bones/joints: No acute fracture. Lungs: Partially imaged bilateral pulmonary opacities. Recommend dedicated CT chest. Other findings: Vertebral artery: Patent without high-grade stenosis. Dominant. CT/CT angio headneck* [id number] IMPRESSION: 1. No large vessel occlusion or high-grade stenosis. 2. No acute intracranial hemorrhage or evidence of acute territorial infarct. IMPRESSION: 1. Patent cervical carotid and vertebral arteries without high-grade stenosis. Dominant right and diminutive left vertebral arteries. 2. Partially imaged bilateral pulmonary opacities. Consider dedicated CT chest with IV contrast. REFERENCES: NASCET CRITERIA. The degree of stenosis in the cervical segment of the internal carotid artery is based on NASCET criteria. Normal is no stenosis. Mild is less than 50% stenosis. Moderate is 50-69% stenosis. Severe is 70% to 99% stenosis. Total occlusion is no detectable patent lumen.
[2023-10-05] MEDS: ketorolac 30 mg/mL INJ 15 MG IVP (20:34)
[2023-10-05] MEDS: metoclopramide 5 mg/mL SDV 2 mL IVP (20:34)
--- NOTE | 2023-10-05 20:34 | ED_ITS ---
HPI - Headache 2 General: Chief Complaint: Headache Stated Complaint: sever headache lightheaded tired worried stroke Time Seen by Provider: 10/05/23 20:21 Source: patient Mode of arrival: ambulatory Limitations: no limitations History of Present Illness: 67-year-old female states she has had a headache for the last 2 days. States the headache is waxed and waned denies sudden onset states headache is severe currently rates it a 9 out of 10 is more in the right of septal region posterior. She denies any slurred speech or weakness denies any neck pain denies any worse improved factors. Associated symptoms: Deny chest pain, fever(s), nausea, rash or vomiting Review of Systems 2 Const: Denies: fever(s), chills, body aches or change in appetite ENMT: Denies: throat pain or dental pain Card: Denies: chest pain Resp: Denies: dyspnea GI: Denies: abdominal pain, nausea, vomiting or diarrhea Musc: Denies: neck pain or back pain Skin/Breast: Denies: rash Neuro: Reports: headache(s) PFS ED 2 PFSH: Social History Smoking and tobacco/nicotine status: never used tobacco/nicotine Alcohol intake: never Marital status: Current occupational status: retired Physical Exam 2 Const: COMMON NORMALS: no acute distress, patient oriented x3 and healthy appearing HENMT: COMMON NORMALS: normocephalic and atraumatic HEAD & SCALP: n ormocephalic and atraumatic Neck/C-Spine: COMMON NORMALS: full ROM and supple Chest: COMMONS NORMALS: normal inspection of the chest Resp: COMMON NORMALS: normal respiratory effort Cardio: COMMON NORMALS: regular rate, regular rhythm and No murmurs present (Cardio) RATE: regular rate RHYTHM: regular rhythm Extremity: COMMON NORMALS: normal to inspection and full ROM Neuro: COMMON NORMALS: patient oriented x3, moves all extremities and no focal motor deficits Psych: COMMON NORMALS: mental status grossly normal, Normal thought process present and cooperative THOUGHT PROCESS: Normal thought process present Skin: COMMON NORMALS: no rashes or lesions noted and no wounds GENERAL SKIN EXAM: no rashes or lesions noted Course 2 Vital Signs: Vital signs: Vital Signs Temperature 97.4 F L 10/05/23 19:05 Pulse Rate 95 10/05/23 19:05 Respiratory Rate 16 10/05/23 19:05 Blood Pressure 147/82 10/05/23 19:05 Pulse Oximetry 95 10/05/23 19:05 Oxygen Delivery Me thod Room Air 10/05/23 19:05 MDM - Headache Medical Decision Making Patient presents here with a headache she been well-appearing here she feels much improved after meds CT is normal no signs of hemorrhage or dissection she does have opacity noted on the scan I talked her she states she does have sarcoidosis this is likely what seen on the imaging she has follow-up with her PCP though for further imaging she understands agrees to plan. Medical Records I reviewed the patient's medical records. Lab Data I reviewed the patient's lab results. 10/05/23 20:33 10/05/23 20:33 Radiology Impressions Head/Neck CTA 10/05/23 20:23 IMPRESSION: 1. No large vessel occlusion or high-grade stenosis. 2. No acute intracranial hemorrhage or evidence of acute territorial infarct. IMPRESSION: 1. Patent cervical carotid and vertebral arteries without high-grade stenosis. Dominant right and diminutive left vertebral arteries. 2. Partially imaged bilateral pulmonary opacities. Consider dedicated CT chest with IV contrast. REFERENCES: NASCET CRITERIA. The degree of stenosis in the cervical segment of the internal carotid artery is based on NASCET criteria. Normal is no stenosis. Mild is less than 50% stenosis. Moderate is 50-69% stenosis. Severe is 70% to 99% stenosis. Total occlusion is no detectable patent lumen. Laboratory Results WBC 6.93 10^3/uL (3.29-11.43) 10/05/23 20:33 RBC 5.05 10^6/uL (3.85-5.65) 10/05/23 20:33 Hgb 13.60 g/dL (11.27-16.99) 10/05/23 20: Hct 39.8 % (36-47) 10/05/23 20:33 MCV 78.8 fl (85-98) L 10/05/23 20: MCH 26.9 pg (27-33) L 10/05/23 20: MCHC 34.2 g/dL (30-55) 10/05/23 20:33 RDW 13.5 % (12.1-15.1) 10/05/23 20:33 Plt Count 380 10^3/cmm (157-399) 10/05/23 20: MPV 8.6 fL (7.4-10.4) 10/05/23 20:33 Neut % (Auto) 61.5 % 10/05/23 20:33 Lymph % (Auto) 23.4 % 10/05/23 20:33 [place] % (Auto) 8.4 % 10/05/23 20:33 Eos % (Auto) 5.5 % 10/05/23 20:33 Baso % (Auto) 0.9 % 10/05/23 20: Neut # (Auto) 4.27 10^3/uL (1.8-7.7) 10/05/23 20: Lymph # (Auto) 1.6 10^3/uL (0.8-4.8) 10/05/23 20: [place] # (Auto) 0.6 10^3/uL (0.2-0.9) 10/05/23 20:33 Eos # (Auto) 0.4 10^3/uL (0.0-0.8) 10/05/23 20: Baso # (Auto) 0.1 10^3/uL (0.0-0.1) 10/05/23 20: Nucleated RBC % (auto) 0 % 10/05/23 20: Nucleated RBCs # 0.0 /100WBC 10/05/23 20:33 Sodium 133 mmol/L (136-145) L 10/05/23 20:33 Potassium 4.2 mmol/L (3.5-5.1) 10/05/23 20:33 Chloride 95 mmol/L (98-107) L 10/05/23 20: Carbon Dioxide 30 mmol/L (22-29) H 10/05/23 20:33 Anion Gap 12.2 (5-19) 10/05/23 20:33 BUN 14 mg/dL (8-23) 10/05/23 20:33 Creatinine 0.8 mg/dL (0.5-0.9) 10/05/23 20:33 GFR Calculation 71.1 mL/min (90-130) L 10/05/23 20:33 Glucose 100 mg/dL (65-115) 10/05/23 20:33 Calculated Osmolality 277 mOsm/kg (285-295) L 10/05/23 20:33 Calcium 9.4 mg/dL (8.5-10.5) 10/05/23 20:33 Total Bilirubin 0.2 mg/dL (0.15-1.2) 10/05/23 20:33 AST 14 U/L (0-32) 10/05/23 20:33 ALT 12 U/L (0-33) 10/05/23 20:33 Alkaline Phosphatase 91 U/L (35-105) 10/05/23 20:33 Total Protein 8.4 g/dL (6.6-8.7) 10/05/23 20:33 Albumin 4.3 g/dL (3.5-5.2) 10/05/23 20:33 Globulin 4.1 g/dL (1.3-4.6) 10/05/23 20:33 All radiology interpretation(s) finalized by discharge Discharge Plan Discharge Patient Disposition: Home Clinical Impression: Headache Condition: Stable Prescriptions: No Action Myrbetriq 50 mg tablet extended release 24 hr 50 mg PO DAILY losartan 50 mg Tablet 50 mg PO DAILY levothyroxine 75 mcg Tablet 75 mcg PO DAILY trazodone 150 mg Tablet 150 mg PO DAILY oxybutynin chloride 5 mg Tablet Extended Release 24hr 5 mg PO DAILY Discharge Orders: Discharge ED (Routine); Ordered 10/05/23 Ordered By: Benjamin Pryor Referrals: Yu Campbell FNP [Primary Care Provider] - 1-3 days Discharge Diet: Advance as tolerated Discharge Activity: Resume usual activity Patient Instructions: Acute Headache (ED) Coding Level of Care Code ED [facility] [employer] Former for Divya Alves
[2023-10-05] MEDS: diphenhydrAMINE 50 mg/mL SDV 1mL 25 MG IVP (20:36)
[2023-10-05 20:42] LABS: Basophils # 0.1 10^3/uL (0.0-0.1); Basophils % 0.9 %; Eosinophils # 0.4 10^3/uL (0.0-0.8); Eosinophils % 5.5 %; Hematocrit 39.8 % (36-47); Lymphocytes # 1.6 10^3/uL (0.8-4.8); Lymphocytes % 23.4 %; Mean Corpuscular HGB Conc 34.2 g/dL (30-55); Mean Corpuscular Hemoglobin 26.9 pg (27-33); Mean Corpuscular Volume 78.8 fl (85-98); Mean Platelet Volume 8.6 fL (7.4-10.4); Monocytes # 0.6 10^3/uL (0.2-0.9); Monocytes % 8.4 %; Neutrophils # 4.27 10^3/uL (1.8-7.7); Neutrophils % 61.5 %; Nucleated Red Blood Cells % 0 %; Platelet Count 380 10^3/cmm (157-399); Red Blood Count 5.05 10^6/uL (3.85-5.65); Red Cell Distribution Width 13.5 % (12.1-15.1); White Blood Count 6.93 10^3/uL (3.29-11.43)
[2023-10-05] MEDS: iohexol 350 mg/mL 500 mL Btl (per mL) IV (20:43)
[2023-10-05 20:59] LABS: Alanine Aminotransferase 12 U/L (0-33); Albumin Level 4.3 g/dL (3.5-5.2); Alkaline Phosphatase 91 U/L (35-105); Anion Gap 12.2 (5-19); Aspartate Amino Transferase 14 U/L (0-32); Blood Urea Nitrogen 14 mg/dL (8-23); Calcium 9.4 mg/dL (8.5-10.5); Carbon Dioxide 30 mmol/L (22-29); Chloride 95 mmol/L (98-107); Globulin 4.1 g/dL (1.3-4.6); Glomerular Filtration Rate 71.1 mL/min (90-130); Glucose 100 mg/dL (65-115); Osmolality Calculated 277 mOsm/kg (285-295); Potassium 4.2 mmol/L (3.5-5.1); Sodium 133 mmol/L (136-145); Total Bilirubin 0.2 mg/dL (0.15-1.2); Total Protein 8.4 g/dL (6.6-8.7)
--- NOTE | 2023-10-05 21:29 | XRR_ITS ---
PROCEDURE INFORMATION: Exam: XR Chest Exam date and time: 10/05/2023 9:32 PM Age: 67 years old Clinical indication: Shortness of breath; Additional info: Pulmonary oppacity TECHNIQUE: Imaging protocol: Radiologic exam of the chest. Views: 1 view. COMPARISON: CR XR chest 2V* [id number] 12/19/2022 11:54 AM FINDINGS: Lungs: Opacities scattered throughout the ijxh-qxqrdpq-bcoc-right lungs, appear grossly similar to 12/19/2022 chest radiographs, likely chronic process. No definite new focal consolidation. Pleural spaces: No large pleural effusion. No pneumothorax. Heart/Mediastinum: No cardiomegaly. Bones/joints: No acute abnormality. XR/XR chest 1V portable [id number] IMPRESSION: Opacities scattered throughout the shjx-lwnywri-uhpr-right lungs, appear grossly similar to 12/19/2022 chest radiographs, likely chronic process. No definite new focal consolidation.
== END 2023-10-05 21:43 | disposition home or self-care (01) ==
PROVIDERS: Nurse Practitioner Family; Emergency Provider Emergency Medicine; PCP Nurse Practitioner Family
DX: R51.9 Headache, unspecified (principal)
CPT/HCPCS: 70496; 70498; 71045; 80053; 85025; 96374; 96375; 99285; J1200; J1885; J2765; Q9967

== ENCOUNTER 2024-03-12 12:31 | Outpatient (CLI) | payer MEDICARE, SELFPAY ==
--- NOTE | 2024-03-12 12:33 | MM_ITS ---
WS: [id number] BILATERAL 3D TOMOSYNTHESIS DIGITAL SCREENING MAMMOGRAPHY WITH CAD CLINICAL INFORMATION: SCREENING HISTORY: Screening mammogram. No current complaints. COMPARISON: 2022 TECHNIQUE: Bilateral CC and MLO views. FINDINGS: The breasts are composed of heterogeneous fibroglandular density tissue, which can limit the detectio n of small underlying mass lesions. No suspicious mass, asymmetry, calcifications, or architectural d istortion. No evidence of malignancy. Incidental punctate and lucent centered calcifications. MM/MM [facility] tomosynthesis [id number] IMPRESSION: DENSITY: The breasts are heterogeneously dense, which may obscure small masses. BI-RADS: 2 - Benign FOLLOW UP: 1 Year Follow-up Recommend return to annual screening mammography.
== END 2024-03-12 12:32 | disposition home or self-care (01) ==
LOC: RAD 12:31
PROVIDERS: PCP Nurse Practitioner Family; Visit Provider Nurse Practitioner Family
DX: Z12.31 Encounter for screening mammogram for malignant neoplasm of breast (principal); R92.1 Mammographic calcification found on diagnostic imaging of breast
CPT/HCPCS: 77063; 77067

== ENCOUNTER 2024-09-11 09:58 | Outpatient (CLI) | payer MEDICARE, SELFPAY ==
--- NOTE | 2024-09-11 10:09 | XR_ITS ---
WS: [id number] XR hip BI 3-4V wo/w pel [id number] REASON FOR EXAM: low back pain FINDINGS: RIGHT HIP: No fracture or focal bone lesion. Significant narrowing of the joint space with significant subchondral sclerosis and osteophytosis of the acetabulum. Moderate osteophytosis of the femoral head. Significant subchondral sclerosis and cystic change in the femoral head. Possible small loose body within the superior joint space. XR/XR hip BI 3-4V wo/w pel [id number] IMPRESSION: Significant osteoarthritis in the right hip as above. LEFT HIP: No fracture or focal bone lesion. Moderate narrowing of the joint space. Moderate to significant subchondral scle rosis of the acetabulum. Significant osteophytosis of the femoral head. Signifi cant subchondral sclerosis and cystic change in the femoral head. IMPRESSION: Significant osteoarthritis of the left hip as above.
== END 2024-09-11 09:59 | disposition home or self-care (01) ==
PROVIDERS: PCP Nurse Practitioner Family; Visit Provider Nurse Practitioner Family
DX: M16.0 Bilateral primary osteoarthritis of hip (principal); M47.816 Spondylosis without myelopathy or radiculopathy, lumbar region; M25.752 Osteophyte, left hip; M25.751 Osteophyte, right hip; R93.89 Abnormal findings on diagnostic imaging of other specified body structures
CPT/HCPCS: 73522

== ENCOUNTER 2024-10-03 09:34 | Outpatient (CLI) | payer MEDICARE, SELFPAY ==
--- NOTE | 2024-10-03 09:41 | MRR_ITS ---
PROCEDURE INFORMATION: Exam: MR Lumbar Spine Without Contrast Exam date and time: 10/03/2024 10:52 AM Age: 68 years old Clinical indication: Low back pain; Additional info: Low back pain/spondylosis w/o myelopathy, lumbar region TECHNIQUE: Imaging protocol: Magnetic resonance imaging of the lumbar spine without contrast. COMPARISON: MR thoracic spin wo con* [id number] 10/03/2024 10:29 AM FINDINGS: Bones/joints: Superior endplate compression fracture at T12, better assessed on accompanying MRI thoracic spine, reported separately. No fracture within the lumbar spine. Several likely intraosseous hemangiomas are noted. A least moderate degenerative disc disease at several levels, most pronounced at L2-L3, L3-L4, and L4-L5 with intervertebral disc height loss. Slight grade 1 retrolisthesis at L2-L3 and L4-L5. Spinal cord: Visualized cord, conus medullaris and cauda equina are unremarkable without compression. L1-L2: Mild broad-based disc bulge, ligamentum flavum thickening, and bilateral facet arthropathy. Mild spinal canal stenosis. Mild bilateral neural foraminal narrowing. L2-L3: Disc bulge, ligamentum flavum thickening, and bilateral facet arthropathy. Moderate spinal canal stenosis. Moderate bilateral neural foraminal narrowing. L3-L4: Disc bulge, ligamentum flavum thickening, bilateral facet arthropathy. Effacement of bilateral lateral recesses with likely impingement of the descending L5 nerve roots bilaterally. Mild spinal canal stenosis. Moderate bilateral neural foraminal narrowing. L4-L5: Disc bulge with superimposed central disc protrusion, ligamentum flavum thickening, bilateral facet arthropathy. Effacement of bilateral lateral recesses with likely impingement of the descending L5 nerve roots bilaterally. Mild spinal canal stenosis. Moderate bilateral neural foraminal narrowing. L5-S1: Mild disc bulge and bilateral facet arthropathy. No severe spinal canal stenosis. [id number]-no-suwaqqnk bilateral neural foraminal narrowing. Soft tissues: Unremarkable. MR/MR lumbar spine wo con* [id number] IMPRESSION: 1. Multilevel lumbar spondylosis with up to moderate spinal canal stenosis and moderate bilateral neural foraminal narrowing as detailed above. 2. Superior endplate compression deformity at T12, better assessed on accompanying MRI thoracic spine.
--- NOTE | 2024-10-03 09:41 | MRR_ITS ---
PROCEDURE INFORMATION: Exam: MR Thoracic Spine Without Contrast Exam date and time: 10/03/2024 10:29 AM Age: 68 years old Clinical indication: Pain in thoracic spine; Without myelpathy or radiculopathy; Additional info: Spondylosis w/o myelopathy or radiculopathy TECHNIQUE: Imaging protocol: Magnetic resonance imaging of the thoracic spine without contrast. COMPARISON: 1. CR XR chest 2V* [id number] 12/19/2022 11:54 AM 2. CR XR chest 1V portable [id number] 10/05/2023 9:32 PM FINDINGS: Bones/joints: Acute to subacute superior endplate compression fracture at T12 with about 30% height loss. Loss of normal T1 signal and increased STIR signal associated with the fracture. Posterior bridging osteophyte also seen at this level along with about 2 mm retrolisthesis of T11 on T12, similar to prior radiographs given differences in technique. Several likely intraosseous hemangiomas are seen scattered throughout the thoracolumbar spine. Spinal cord: Normal signal. No cord compression. T1-T2: No significant disc bulge or herniation. No severe spinal canal stenosis. No significant neural foraminal narrowing. T2-T3: No significant disc bulge or herniation. No severe spinal canal stenosis. No significant neural foraminal narrowing. T3-T4: No significant disc bulge or herniation. No severe spinal canal stenosis. No significant neural foraminal narrowing. T4-T5: No significant disc bulge or herniation. No severe spinal canal stenosis. No significant neural foraminal narrowing. T5-T6: No significant disc bulge or herniation. No severe spinal canal stenosis. No significant neural foraminal narrowing. T6-T7: No significant disc bulge or herniation. No severe spinal canal stenosis. No significant neural foraminal narrowing. T7-T8: No significant disc bulge or herniation. No severe spinal canal stenosis. No significant neural foraminal narrowing. T8-T9: No significant disc bulge or herniation. No severe spinal canal stenosis. No significant neural foraminal narrowing. T9-T10: No significant disc bulge or herniation. No severe spinal canal stenosis. No significant neural foraminal narrowing. T10-T11: No significant disc bulge or herniation. No severe spinal canal stenosis. No significant neural foraminal narrowing. T11-T12: Posterior osteophyte effacing the ventral thecal sac and resulting in [id number] spinal canal stenosis. No significant neural foraminal narrowing. T12-L1: No significant disc bulge or herniation. No severe spinal canal stenosis. No significant neural foraminal narrowing. Soft tissues: Unremarkable. MR/MR thoracic spin wo con* [id number] IMPRESSION: 1. Acute to early subacute mild superior endplate compression fracture at T12 with about 30% height loss. Correlate with physical exam findings/point tenderness. 2. Posterior osteophyte at T11-T12 resulting in [id number] spinal canal stenosis. 3. Chronic grade 1 retrolisthesis at T11 and T12.
== END 2024-10-03 09:35 | disposition home or self-care (01) ==
PROVIDERS: PCP Nurse Practitioner Family; Visit Provider Nurse Practitioner Family
DX: M47.816 Spondylosis without myelopathy or radiculopathy, lumbar region (principal); R32 Unspecified urinary incontinence; S22.089A Unspecified fracture of T11-T12 vertebra, initial encounter for closed fracture; X58.XXXA Exposure to other specified factors, initial encounter; M25.78 Osteophyte, vertebrae; M48.04 Spinal stenosis, thoracic region; M43.14 Spondylolisthesis, thoracic region; R93.7 Abnormal findings on diagnostic imaging of other parts of musculoskeletal system; M48.061 Spinal stenosis, lumbar region without neurogenic claudication; M51.369 Other intervertebral disc degeneration, lumbar region without mention of lumbar back pain or lower extremity pain; M24.28 Disorder of ligament, vertebrae; M47.896 Other spondylosis, lumbar region; M51.26 Other intervertebral disc displacement, lumbar region; M51.379 Other intervertebral disc degeneration, lumbosacral region without mention of lumbar back pain or lower extremity pain; M47.897 Other spondylosis, lumbosacral region; M48.07 Spinal stenosis, lumbosacral region
CPT/HCPCS: 72146; 72148

== ENCOUNTER 2025-03-17 13:28 | Outpatient (CLI) | payer MEDICARE, SELFPAY ==
--- NOTE | 2025-03-17 13:34 | MM_ITS ---
WS: [id number] BILATERAL 3D TOMOSYNTHESIS DIGITAL SCREENING MAMMOGRAPHY WITH CAD CLINICAL INFORMATION: SCREENING HISTORY: Screening mammogram. No current complaints. COMPARISON: 2023 TECHNIQUE: Bilateral CC and MLO views. FINDINGS: The breasts are composed of heterogeneous fibroglandular density tissue, which can limit the detection of small underlying mass lesions. No suspicious mass, asymmetry, calcifications, or architectural distortion. No evidence of malignancy. Incidental punctate lucent centered calcifications. Stable bilateral nodularity MM/MM [facility] tomosynthesis [id number] IMPRESSION: DENSITY: The breasts are heterogeneously dense, which may obscure small masses. BI-RADS: 2 - Benign FOLLOW UP: 1 Year Follow-up Recommend return to annual screening mammography.
== END 2025-03-17 13:29 | disposition home or self-care (01) ==
LOC: RAD 13:29
PROVIDERS: PCP Nurse Practitioner Family; Visit Provider Nurse Practitioner Family
DX: Z12.31 Encounter for screening mammogram for malignant neoplasm of breast (principal); R92.323 Mammographic fibroglandular density, bilateral breasts; R92.333 Mammographic heterogeneous density, bilateral breasts; R92.1 Mammographic calcification found on diagnostic imaging of breast; N64.89 Other specified disorders of breast
CPT/HCPCS: 77063; 77067